=== PATIENT | male | born 1945 | race American Indian/Alaskan Native ===

== ENCOUNTER 2017-07-14 15:22 | Emergency (ER) | payer MEDICARE ==
[2017-07-14 15:31] VITALS: BMI 24.4
[2017-07-14 15:34] VITALS: BP 142/90; PULSE 82; RESP 16; TEMP 97.9; O2SAT 97
--- NOTE | 2017-07-14 16:16 | C.PDOC ---
History Of Present Illness Pt c/o lump on his left knee. Time Seen by Provider: 07/14/17 15:49 Chief Complaint (Nursing): Lower Extremity Problem/Injury History Per: Patient, Family Onset/Duration Of Symptoms: Days (about 1 week) Current Symptoms Are (Timing): Still Present Severity: Moderate Additional History Per: Prior Records - Knee Knee: 1 - bursa full of fluid Past Medical History Reviewed: Historical Data, Nursing Documentation, Vital Signs Vital Signs: Last Vital Signs Temp 97.9 F 07/14/17 15:30 Pulse 82 07/14/17 15:30 Resp 16 07/14/17 15:30 BP 142/90 07/14/17 15:30 Pulse Ox 97 07/14/17 15:30 - Medical History PMH: HTN, Hypercholesterolemia Family History: States: Unknown Family Hx - Social History Hx Alcohol Use: No Hx Substance Use: No - Immunization History Hx Tetanus Toxoid Vaccination: No Hx Influenza Vaccination: Yes Hx Pneumococcal Vaccination: No Review Of Systems Except As Marked, All Systems Reviewed And Found Negative. Constitutional: Negative for: Fever, Weakness ENT: Positive for: Throat Pain. Negative for: Ear Pain, Ear Discharge Cardiovascular: Negative for: Chest Pain Respiratory: Negative for: Cough, Shortness of Breath Gastrointestinal: Negative for: Vomiting, Abdominal Pain Musculoskeletal: Negative for: Neck Pain, Leg Pain, Foot Pain Skin: Positive for: Lesions (on his scalp for the past few days) Neurological: Negative for: Weakness, Numbness, Headache Physical Exam - Physical Exam Appears: Non-toxic, No Acute Distress Skin: Normal Color, Warm, Dry Head: Atraumatic, Other (small scabbed lesions on scalp) Eye(s): bilateral: Normal Inspection, PERRL, EOMI Neck: Normal ROM, Supple Cardiovascular: Rhythm Regular Respiratory: Normal Breath Sounds, No Accessory Muscle Use Gastrointestinal/Abdominal: Soft, No Tenderness Extremity: Normal ROM, No Tenderness, No Pedal Edema, No Calf Tenderness, Other (Fluid filled bursa at anterior lower left knee with no erythema or warmth. ) Extremity: Bilateral: Normal Color And Temperature Neurological/Psych: Oriented x3, Normal Motor, Normal Sensation ED Course And Treatment O2 Sat by Pulse Oximetry: 97 Pulse Ox Interpretation: Normal Disposition Counseled Patient/Family Regarding: Studies Performed, Diagnosis, Need For Followup, Rx Given - Disposition Referrals: Alicia Martínez MD [Staff Provider] - Ofe Wang MD [Staff Provider] - Disposition: HOME/ ROUTINE Disposition Time: 16:18 Condition: STABLE Additional Instructions: Follow up with your doctor this week. Follow up with an orthopedic doctor for further evaluation and treatment. Return to the ER if you develop fever, redness , worsening of symptoms or if you have any other concerns. Prescriptions: Ketoconazole 2% Shampoo [Nizoral] 1 applic EXT MWF #1 bottle Instructions: Knee Bursitis (ED) Forms: [facility] ([place]ian) - Clinical Impression Clinical Impression: Bursitis of left knee, Skin lesion of scalp
== END 2017-07-14 16:35 | disposition home or self-care (01) ==
LOC: C.ER 15:22
DX: M70.52 Other bursitis of knee, left knee (principal); L98.8 Other specified disorders of the skin and subcutaneous tissue